=== PATIENT | female | born 1935 | race Caucasian/White ===

== ENCOUNTER 2017-04-05 23:16 | Emergency (ER) | payer OTHER, MEDICARE ==
[2017-04-05 23:26] VITALS: BMI 33.3
[2017-04-05 23:43] LABS: BILIRUBIN,URINE NEGATIVE (NEGATIVE); BLOOD/HEMOGLOBIN,URINE 2+ (NEGATIVE); GLUCOSE, URINE NEGATIVE (NEGATIVE); KETONES,URINE NEGATIVE (NEGATIVE); LEUKOCYTE ESTERASE ,URINE 2+ (NEGATIVE); NITRITES,URINE NEGATIVE (NEGATIVE); PROTEIN,URINE NEGATIVE (NEGATIVE); UROBILINOGEN,URINE NORMAL (NORMAL)
[2017-04-06] MEDS ORDERED: ZOFRAN INJ 4 MG VIAL IM ONE
[2017-04-06] MEDS ORDERED: DEMEROL INJ IM ONE
--- NOTE | 2017-04-06 | DR.GENAD ---
HPI - PCP Primary Care Physician: OBINNA - HPI Comment HPI Comment: PAIN GO FROM THE BACK TO THE FRONT AREA OF ABDOMEN. NO FEVER.OR DYSURIA. PATIENT HAVE HAD NEPHRECTOMY LT KIDNEY. - Complaint/Symptoms Chief Complaint Doctors Comments: RIGHT FLANK PAIN THAT IS GETTING WORSE. Chief Complaint:: RIGHT BACK PAIN RADIATES AROUND TO SIDE , COMES AND GOES LIKE WAVES. IT STARTED TONIGHT. INCREASE IN URINE FREQUENCY.DENIES ANY HEMATURIA Self Treatment fo Chief Complaint: CY DEIEN 2 OF EACH - Nurses notes reviewed Nurses Notes Review: Yes - Source History Provided: Patient - Mode of Arrival Mode of Arrival: Ambulatory - Timing Onset of Chief Complaint: 04/05/17 Came on: Gradually - Duration Duration: Constant Duration: Hours - Severity Severity: Moderate PMH - PMH Past Medical History: Yes Past Medical History: Gout, Hypertension, Renal Disease Past Medical History Comment: KIDNEY CANCER- LEFT NEPHRECTOMY Past Surgical History: Yes Surgical History: Bowel Resection, Joint Replacement, Other Past Surgical History Comment: LEFT KIDNEY REMOVED - Family History History of Family Medical Conditions: Yes Family Medical History: Cancer, Hypertension - Social History Does patient currently use any type of tobacco product: No Have you used tobacco products in the last 12 months: No Type of Tobacco Use: None Does any household member use tobacco: No Alcohol Use: None Do you use any recreational Drugs:: No Lives With: Family Lives Where: Home - infectious screening Have you traveled outside the country in the last 6 months?: No Isolation: Standard ROS - Review of Systems Constitutional: No Symptoms Reported. negative: Chills, Fever Eyes: negative: Eye Pain, Discharge ENTM: negative: Ear Pain, Nose Discharge, Nose Congestion, Throat Pain Respiratoy: Short of Breath (ON EXERSION.). negative: Wheezing, Hemoptysis Cardiovascular: Edema. negative: Chest Pain Gastrointestinal/Abdominal: Abdominal Pain, Other (RIGHT FLANK PAIN). negative : Nausea, Vomiting Genitourinary: negative: Dysuria, Hematuria Neurological: negative: Headache, Weakness, Dizziness Musculoskeletal: Muscle Pain Integumentary: negative: Rash, Bruises, Juandice Hematologic/Lymphatic: Anemia Endocrine: No Symptoms Reported All Other Systems: Reviewed and Negative PE - Vital Signs Vitals: Temperature 97.5 F Pulse Rate [Left Brachial] 58 Pulse Rate 65 Respiratory Rate 18 Blood Pressure [Right Arm] 170/92 Blood Pressure [Left Arm] 154/68 Blood Pressure 168/79 O2 Sat by Pulse Oximetry 95 - General Limitations: No Limitations General Appearance: Alert - Head Head Exam: Normal Inspection - Eyes Eye exam: negative: Scleral Icterus, Conjunctival Injection - ENT ENT Exam: Normal External Ear Exam External Ear Exam: Normal External Inspection TM/Canal Exam: Bilateral Normal Nose Exam: Normal Nose Exam Mouth Exam: Normal Inspection Throat Exam: Normal Inspection - Neck Neck Exam: Trachea Midline - Chest Chest Inspection: Symmetric Chest Wall Rise - Respiratory Respiratory Exam: Normal Lung Sounds Bilat Respiratory Exam: Bilateral Clear to Auscultation - Cardiovascular Cardiovascular Exam: Regular Rate, Normal Rhythm, Normal Heart Sounds - Abdominal Exam Abdominal Exam: Normal Bowel Sounds, Soft, Tenderness Abdominal Tenderness: RUQ, RLQ, Epigastrium - Extremities Extremities Exam: Edema - Back Back Exam: (R) CVA Tenderness, Paraspinal Tenderness - Neurologic Neurological Exam: Alert, Oriented X3 - Psychiatric Psychiatric Exam: Normal Affect, Normal Mood - Skin Skin Exam: Normal Color MDM - Additional Information Additional Information Obtained From: Family - Differential Diagnosis Differential Diagnosis: RIGHT FLANK PAIN, KIDNEY STONE, CHOLECYSTITIS, GALL STONE, Course - Treatment Treatment: SEE ORDERS. DEMOROL IN IN ED. PAIN IMPROVED. - Education/Counseling Education/Counseling: Patient, Family, Education Educated On: Treatment, Diagnosis, Needs for Follow Up ROR - Labs Reviewed Laboratory Results Reviewed?: Yes Result Diagrams: 04/05/17 23:58 04/05/17 23:58 Laboratory: WBC 6.4 X10^3/uL (3.6-10.0) 04/05/17 23:58 RBC 4.50 X10^6/uL (3.5-5.4) 04/05/17 23:58 Hgb 13.3 g/dL (12.0-16.0) 04/05/17 23:58 Hct 38.9 % (36.0-47.0) 04/05/17 23:58 MCV 86.4 fL (80.0-100.0) 04/05/17 23:58 MCH 29.6 pg (27.0-34.0) 04/05/17 23:58 MCHC 34.2 g/dL (33.0-35.0) 04/05/17 23:58 RDW 14.8 % (11.6-16.5) 04/05/17 23:58 Plt Count 192 X10^3/uL (150.0-450.0) 04/05/17 23:58 MPV 7.9 fL (7.4-11.0) 04/05/17 23:58 Neut % 72.6 % (42.0-75.0) 04/05/17 23:58 Lymph % 18.6 % (21.0-51.0) L 04/05/17 23:58 Andrews % 7.8 % (0.0-13.0) 04/05/17 23:58 Eos % 0.3 % (0.9-2.9) L 04/05/17 23:58 Baso % 0.7 % (0.2-1.0) 04/05/17 23:58 Neut # 4.7 x10^3/uL (2.2-4.8) 04/05/17 23:58 Lymph # 1.2 X10^3/uL (1.3-2.9) L 04/05/17 23:58 Andrews # 0.5 x10^3/uL (0.3-0.8) 04/05/17 23:58 Eos # 0.0 x10^3/uL (0.0-0.2) 04/05/17 23:58 Baso # 0.0 X10^3/uL (0.0-0.1) 04/05/17 23:58 Absolute Nucleated RBC 0.0 /100WBC 04/05/17 23:58 Sodium 136 mmol/L (136-145) 04/05/17 23:58 Corrected Sodium TNP 04/05/17 23:58 Potassium 3.7 mmol/L (3.5-5.1) 04/05/17 23:58 Chloride 102 mmol/L (98-107) 04/05/17 23:58 Carbon Dioxide 30.0 mmol/L (21-32) 04/05/17 23:58 BUN 34 mg/dL (7-18) H 04/05/17 23:58 Creatinine 1.23 mg/dL (0.55-1.02) H 04/05/17 23:58 Est GFR (MDRD) Af Amer 53 (>60) L 04/05/17 23:58 Est GFR (MDRD) Non-Af 44 (>60) L 04/05/17 23:58 Glucose 99 mg/dL (65-99) 04/05/17 23:58 Calcium 9.2 mg/dL (8.5-10.1) 04/05/17 23:58 Corrected Calcium 9.9 mg/dL (8.5-10.1) 04/05/17 23:58 Total Bilirubin 0.50 mg/dL (0.2-1.0) 04/05/17 23:58 AST 13 Units/L (15-37) L 04/05/17 23:58 ALT 14 Units/L (12-78) 04/05/17 23:58 Alkaline Phosphatase 84 Units/L (46-116) 04/05/17 23:58 Total Protein 6.3 g/dL (6.4-8.2) L 04/05/17 23:58 Albumin 3.1 g/dL (3.4-5.0) L 04/05/17 23:58 Globulin 3.2 g/dL (2.5-4.5) 04/05/17 23:58 Albumin/Globulin Ratio 1.0 Ratio (1.1-2.1) L 04/05/17 23:58 Amylase 54 Units/L (25-115) 04/05/17 23:58 Lipase 302 Units/L (73-393) 04/05/17 23:58 Specimen Type Clean catch urine 04/05/17 23:34 Urine Color Yellow (YELLOW) 04/05/17 23:34 Urine Appearance Clear (CLEAR) 04/05/17 23:34 Urine pH 7.0 (5.0 - 8.0) 04/05/17 23:34 Ur Specific [place] 1.010 (1.000-1.030) 04/05/17 23:34 Urine Protein Negative (NEGATIVE) 04/05/17 23:34 Urine Glucose (UA) Negative (NEGATIVE) 04/05/17 23:34 Urine Ketones Negative (NEGATIVE) 04/05/17 23:34 Urine Occult Blood 2+ (NEGATIVE) 04/05/17 23:34 Urine Nitrite Negative (NEGATIVE) 04/05/17 23:34 Urine Bilirubin Negative (NEGATIVE) 04/05/17 23:34 Urine Urobilinogen Normal (NORMAL) 04/05/17 23:34 Ur Leukocyte Esterase 2+ (NEGATIVE) 04/05/17 23:34 Urine RBC 0-3 /HPF (NEGATIVE) 04/05/17 23:34 Urine WBC 0-3 /HPF (NEGATIVE) 04/05/17 23:34 Ur Squamous Epith Cells Few /HPF (NEGATIVE) 04/05/17 23:34 Urine Bacteria Trace /HPF (NEGATIVE) 04/05/17 23:34 Ur Culture Indicated? No/not indicated 04/05/17 23:34 - XRAY XRAY Interpreted by: Radiologist XRAY Findings: REPORT DISCUSS WITH PATIENT. - Diagnosis Discharge Problem: Right flank pain Radiculopathy Qualifiers: Spinal region: thoracolumbar Qualified Code(s): M54.15 - Radiculopathy, thoracolumbar region - Discharge Plan Condition: Stable - Follow ups/Referrals Follow ups/Referrals: Joe Chin [STAFF PHYSICIAN] - 3 days NFD,None [Primary Care Provider] - 04/07/17 - Instructions Instructions: Musculoskeletal Pain, Flank Pain, [id number] Additional Instructions: RETURN TO ED IF WORSE.
[2017-04-06] MEDS ORDERED: DEMEROL INJ ONE (00:04)
[2017-04-06] MEDS ORDERED: ZOFRAN INJ 4 MG VIAL ONE (00:04)
[2017-04-06 00:05] LABS: APPEARANCE,URINE CLEAR (CLEAR); BACTERIA,URINE TRACE /HPF (NEGATIVE); COLOR,URINE YELLOW (YELLOW); RBC,URINE 0-3 /HPF (NEGATIVE); SQUAMOUS EPITHELIAL CELL,UR FEW /HPF (NEGATIVE)
[2017-04-06 00:14] LABS: BASOPHILS % (AUTO) 0.7 % (0.2-1.0); EOSINOPHILS % (AUTO) 0.3 % (0.9-2.9); HEMATOCRIT 38.9 % (36.0-47.0); HEMOGLOBIN 13.3 g/dL (12.0-16.0); LYMPHOCYTES # (AUTO) 1.2 X10^3/uL (1.3-2.9); LYMPHOCYTES % (AUTO) 18.6 % (21.0-51.0); MEAN CORPUSCULAR HEMOGLOBIN 29.6 pg (27.0-34.0); MEAN CORPUSCULAR HGB CONC 34.2 g/dL (33.0-35.0); MEAN CORPUSCULAR VOLUME 86.4 fL (80.0-100.0); MEAN PLATELET VOLUME 7.9 fL (7.4-11.0); MONOCYTES # (AUTO) 0.5 x10^3/uL (0.3-0.8); MONOCYTES % (AUTO) 7.8 % (0.0-13.0); NEUTROPHILS # (AUTO) 4.7 x10^3/uL (2.2-4.8); NEUTROPHILS % (AUTO) 72.6 % (42.0-75.0); PLATELET COUNT 192 X10^3/uL (150.0-450.0); RED CELL DISTRIBUTION WIDTH 14.8 % (11.6-16.5); WHITE BLOOD COUNT 6.4 X10^3/uL (3.6-10.0)
[2017-04-06 00:32] LABS: BLOOD UREA NITROGEN 34 mg/dL (7-18); CALCIUM 9.2 mg/dL (8.5-10.1); CHLORIDE 102 mmol/L (98-107); CREATININE 1.23 mg/dL (0.55-1.02); SODIUM 136 mmol/L (136-145); eGFR BLACK RACES 53 (>60); eGFR NON BLACK RACES 44 (>60)
[2017-04-06 00:54] LABS: ALANINE AMINOTRANSFERASE 14 Units/L (12-78); ALBUMIN 3.1 g/dL (3.4-5.0); ALKALINE PHOSPHATASE 84 Units/L (46-116); AMYLASE 54 Units/L (25-115); ASPARTATE AMINO TRANSFERASE 13 Units/L (15-37); COR CA(FOR HYPOALB) 9.9 mg/dL (8.5-10.1); LIPASE 302 Units/L (73-393); TOTAL PROTEIN 6.3 g/dL (6.4-8.2)
--- NOTE | 2017-04-06 01:16 | CT ---
CT abdomen and pelvis without contrast Indication: Right flank pain Comparison: No prior CT abdomen available. Technique: Helical images through the abdomen and pelvis without contrast. Coronal and sagittal refor mats provided. Findings: T11 compression fracture with vertebroplasty change again noted. No new osseous abnormaliti es seen otherwise. Limited images through the lower chest show chronic lung changes large hiatal hernia with the majorit y of the stomach and knee posterior mediastinum. Heart size is prominent with coronary artery disease noted. Abdomen: A few scattered hepatic hypodensities are nonspecific. The gallbladder, spleen and pancreas are normal. Adrenal glands are relatively normal with calcifications seen in the left adrenal gland. Stomach is otherwise normal. Small bowel is normal. Noninflamed sigmoid diverticulosis and descending colon diverticulosis noted. Moderate aortic plaque noted. Right lower pole renal cyst noted. Left ki dney is absent. Pelvis: The urinary bladder and rectum are normal. Uterus is atrophic. No adnexal region lesions seen . Impression: 1. No hydronephrosis or stone. 2. Right lower pole renal hypodensities most compatible with cyst but technically indeterminate. None mergent follow-up should be considered. 3. Scattered hepatic hypodensities are indeterminate. Metastatic disease cannot be completely exclude d. Nonemergent outpatient ultrasound follow-up recommended. 4.. Diverticulosis, large hiatal hernia, chronic lung changes, vascular plaque and chronic T11 fractu re also noted. Reported By:
[2017-04-06 01:36] VITALS: BP 154/68
== END 2017-04-06 01:36 | disposition home or self-care (01) ==
LOC: ER 23:32
DX: R10.84 Generalized abdominal pain (principal); M54.15 Radiculopathy, thoracolumbar region; K57.90 Diverticulosis of intestine, part unspecified, without perforation or abscess without bleeding; K44.9 Diaphragmatic hernia without obstruction or gangrene
CPT/HCPCS: 36415; 74176; 80053; 81001; 82150; 83690; 85025; 96372; 99283; J2175; J2405

== ENCOUNTER 2017-04-10 00:12 | Emergency (ER) | payer OTHER, MEDICARE ==
[2017-04-10 00:34] VITALS: BMI 31.6
[2017-04-10] MEDS ORDERED: ZOFRAN INJ 4 MG VIAL IVP ONE (00:54)
[2017-04-10] MEDS ORDERED: NS 1000 ML 1,000 ML IV ONE (00:55)
--- NOTE | 2017-04-10 01:00 | DR.GENAD ---
HPI - PCP Primary Care Physician: JOE YEBOAH - Complaint/Symptoms Chief Complaint Doctors Comments: Patient was seen on 04/05/17 with chronic low back pain. CT revealed a chronic T11 fracture (compressio). She was medicated with IM medication. She did not follow up with primary care physician Chief Complaint:: "PAIN IN MY LEFT SIDE AND LOWER BACK. I HAVE BEEN THROWING UP. " Self Treatment fo Chief Complaint: HYDROCODONE, ZANAX, ADVIL - Source History Provided: Patient - Mode of Arrival Mode of Arrival: Ambulatory - Timing Onset of Chief Complaint: 04/09/17 PMH - PMH Past Medical History: Yes Past Medical History: Anxiety, Gout, Hypertension Past Medical History Comment: KIDNEY CANCER Past Surgical History: Yes Surgical History: Bowel Resection, Ortho Surgery Past Surgical History Comment: LEFT KIDNEY REMOVED - Family History History of Family Medical Conditions: Yes Family Medical History: Hypertension - Social History Does patient currently use any type of tobacco product: No Have you used tobacco products in the last 12 months: No Type of Tobacco Use: None Alcohol Use: None Do you use any recreational Drugs:: No Lives With: Alone Lives Where: Home - infectious screening In the last 2 months have you had wt loss of >10#?: NO Have you had fever, night sweats or hemotysis?: No Have you traveled outside the country in the last 6 months?: No Isolation: Standard ROS - Review of Systems Eyes: No Symptoms Reported ENTM: No Symptoms Reported Respiratoy: No Symptoms Reported Cardiovascular: No Symptoms Reported Gastrointestinal/Abdominal: No Symptoms Reported Genitourinary: No Symptoms Reported Neurological: No Symptoms Reported Musculoskeletal: No Symptoms Reported Integumentary: No Symptoms Reported Hematologic/Lymphatic: No Symptoms Reported Endocrine: No Symptoms Reported Psychiatric: No Symptoms Reported All Other Systems: Reviewed and Negative PE - Vital Signs Vitals: Pulse Rate 65 Respiratory Rate 20 Blood Pressure [Right Arm] 170/92 Blood Pressure [Left Arm] 181/75 Blood Pressure 154/68 O2 Sat by Pulse Oximetry 96 - General General Appearance: Alert, In No Apparent Distress - Head Head Exam: Normal Inspection, Atraumatic - Eyes Eye exam: Normal Appearance, PERRL, EOMI - ENT ENT Exam: Normal Exam External Ear Exam: Normal External Inspection TM/Canal Exam: Bilateral Normal Nose Exam: Normal Nose Exam, Sinus Tenderness Mouth Exam: Normal Inspection Throat Exam: Normal Inspection - Neck Neck Exam: Normal Inspection, Full ROM - Chest Chest Inspection: Normal Inspection - Respiratory Respiratory Exam: Normal Lung Sounds Bilat Respiratory Exam: Bilateral Clear to Auscultation - Cardiovascular Cardiovascular Exam: Regular Rate, Normal Rhythm - Abdominal Exam Abdominal Exam: Normal Inspection Abdominal Tenderness: negative: RUQ, RLQ, LUQ, LLQ, Epigastrium, Suprapubic, Diffuse, Mild, Moderate, Severe, Other - Extremities Extremities Exam: Normal Inspection, Full ROM - Back Back Exam: Normal Inspection, Vertebral Tenderness (mid lumbar) - Neurologic Neurological Exam: Alert, Oriented X3, CN II-XII Intact - Psychiatric Psychiatric Exam: Normal Affect - Skin Skin Exam: Warm, Dry, Intact - Diagnosis Discharge Problem: Compression fx, thoracic spine Qualifiers: Encounter type: subsequent encounter Fracture type: closed Fracture healing: with routine healing Qualified Code(s): S22.000D - Wedge compression fracture of unspecified thoracic vertebra, subsequent encounter for fracture with routine healing - Discharge Plan Condition: Stable - Follow ups/Referrals Follow ups/Referrals: Joe Yeboah [Primary Care Provider] - 3 days - Instructions
[2017-04-10] MEDS ORDERED: TORADOL 60 MG VIAL IM ONE (01:01)
[2017-04-10] MEDS ORDERED: TORADOL 60 MG VIAL ONE (01:07)
[2017-04-10 01:33] VITALS: BP 171/68
[2017-04-10] MEDS ORDERED: MOBIC TAB 15 MG PO SCH (02:00)
== END 2017-04-10 01:30 | disposition home or self-care (01) ==
LOC: ER 00:12
DX: S22.000D Wedge compression fracture of unspecified thoracic vertebra, subsequent encounter for fracture with routine healing (principal); Y33.XXXA Other specified events, undetermined intent, initial encounter; Y92.9 Unspecified place or not applicable
CPT/HCPCS: 96372; 99282; J1885

== ENCOUNTER 2017-09-03 16:15 | Emergency (ER) | payer OTHER, MEDICARE ==
[2017-09-03 16:22] VITALS: BMI 31.6
--- NOTE | 2017-09-03 16:58 | DR.GENAD ---
HPI - PCP Primary Care Physician: JAEL - HPI Comment HPI Comment: PATIENT HAVE CHRONIC BACK PAIN BUT CURRENT PAIN IS DIFFERENT. NO FEVER. - Complaint/Symptoms Chief Complaint Doctors Comments: BACK AND LEFT SIFE PAIN TIMES ONE DAY. Chief Complaint:: BACK PAIN AND LEFT SIDE PAIN. DENIES FALLING BUT HAD BACK SURGERY BUT DOESN'T REMEMBER THE YEAR. Self Treatment fo Chief Complaint: TOOK SOME MEDS THAT I HAD AT HOME - Nurses notes reviewed Nurses Notes Review: Yes - Source History Provided: Patient - Mode of Arrival Mode of Arrival: Ambulatory - Timing Onset of Chief Complaint: 09/02/17 Came on: Suddenly - Duration Duration: Constant Duration: Days - Severity Severity: Moderate PMH - PMH Past Medical History: Yes Past Medical History: Anxiety, Arthritis, Gout, Hypertension Past Surgical History: Yes Surgical History: Bowel Resection, Ortho Surgery, Other Past Surgical History Comment: KIDNEY REMOVED FROM CANCER - Family History History of Family Medical Conditions: Yes Family Medical History: Hypertension - Social History Does any household member use tobacco: No Alcohol Use: None Do you use any recreational Drugs:: No Lives With: Alone Lives Where: Home - infectious screening In the last 2 months have you had wt loss of >10#?: NO Have you had fever, night sweats or hemotysis?: No Have you traveled outside the country in the last 6 months?: No Isolation: Standard ROS - Review of Systems Constitutional: No Symptoms Reported Eyes: No Symptoms Reported ENTM: No Symptoms Reported Respiratoy: No Symptoms Reported Cardiovascular: No Symptoms Reported Gastrointestinal/Abdominal: No Symptoms Reported Genitourinary: No Symptoms Reported Neurological: No Symptoms Reported Musculoskeletal: Other (LEFT FLANK PAIN) Integumentary: No Symptoms Reported Hematologic/Lymphatic: No Symptoms Reported Endocrine: No Symptoms Reported All Other Systems: Reviewed and Negative PE - Vital Signs Vitals: Temperature 97.4 F Pulse Rate [Left Brachial] 65 Pulse Rate 55 Respiratory Rate 20 Blood Pressure [Right Arm] 171/68 Blood Pressure [Left Arm] 198/83 Blood Pressure 220/91 O2 Sat by Pulse Oximetry 96 - General Limitations: No Limitations General Appearance: Alert - Head Head Exam: Normal Inspection - Eyes Eye exam: Normal Appearance - ENT ENT Exam: Normal External Ear Exam External Ear Exam: Normal External Inspection TM/Canal Exam: Bilateral Normal Nose Exam: Normal Nose Exam Mouth Exam: Normal Inspection Throat Exam: Normal Inspection - Neck Neck Exam: Trachea Midline - Respiratory Respiratory Exam: Normal Lung Sounds Bilat Respiratory Exam: Bilateral Clear to Auscultation - Cardiovascular Cardiovascular Exam: Regular Rate, Normal Rhythm, Normal Heart Sounds - Abdominal Exam Abdominal Exam: Normal Bowel Sounds, Soft. negative: Tenderness - Extremities Extremities Exam: Normal Inspection - Back Back Exam: Muscle Spasm, Paraspinal Tenderness - Neurologic Neurological Exam: Alert, Oriented X3 - Psychiatric Psychiatric Exam: Normal Affect, Normal Mood - Skin Skin Exam: Normal Color MDM - Additional Information Additional Information Obtained From: Family - Differential Diagnosis Differential Diagnosis: LEFT FLANK PAIN, UTI, KIDNEY STONE Course - Treatment Treatment: SEE ORDERS. IM MED FOR PAIN IN ED. - Reevaluation 1st: Improved - Education/Counseling Education/Counseling: Patient, Family, Education Educated On: Treatment, Diagnosis, Needs for Follow Up ROR - Labs Reviewed Laboratory Results Reviewed?: Yes Laboratory: Specimen Type Random urine 09/03/17 17:12 Urine Color Yellow (YELLOW) 09/03/17 17:12 Urine Appearance Slightly hazy (CLEAR) 09/03/17 17:12 Urine pH 5.0 (5.0 - 8.0) 09/03/17 17:12 Ur Specific [place] 1.020 (1.000-1.030) 09/03/17 17:12 Urine Protein 1+ (NEGATIVE) 09/03/17 17:12 Urine Glucose (UA) Negative (NEGATIVE) 09/03/17 17:12 Urine Ketones Negative (NEGATIVE) 09/03/17 17:12 Urine Occult Blood 3+ (NEGATIVE) 09/03/17 17:12 Urine Nitrite Negative (NEGATIVE) 09/03/17 17:12 Urine Bilirubin Negative (NEGATIVE) 09/03/17 17:12 Urine Urobilinogen Normal (NORMAL) 09/03/17 17:12 Ur Leukocyte Esterase 1+ (NEGATIVE) 09/03/17 17:12 Urine RBC 3-5 /HPF (NONE SEEN) 09/03/17 17:12 Urine WBC 0-2 /HPF (NONE SEEN) 09/03/17 17:12 Ur Squamous Epith Cells Rare /HPF (NEGATIVE) 09/03/17 17:12 Urine Bacteria Negative /HPF (NEGATIVE) 09/03/17 17:12 Ur Culture Indicated? No/not indicated 09/03/17 17:12 - Diagnosis Discharge Problem: Back pain - Discharge Plan Disposition: 01 HOME, SELF-CARE Condition: Stable - Follow ups/Referrals Follow ups/Referrals: Joe Chin [Primary Care Provider] - 09/04/17 - Instructions Instructions: Musculoskeletal Pain, Back Pain, Adult, [id number] Additional Instructions: RETURN TO ED IF WORSE.
[2017-09-03] MEDS ORDERED: TORADOL 60 MG VIAL IM ONE (17:00)
[2017-09-03] MEDS ORDERED: DECADRON INJ IM ONE (17:00)
[2017-09-03] MEDS ORDERED: TORADOL 60 MG VIAL ONE (17:05)
[2017-09-03] MEDS ORDERED: DECADRON INJ ONE (17:06)
[2017-09-03 17:23] LABS: BILIRUBIN,URINE NEGATIVE (NEGATIVE); BLOOD/HEMOGLOBIN,URINE 3+ (NEGATIVE); GLUCOSE, URINE NEGATIVE (NEGATIVE); KETONES,URINE NEGATIVE (NEGATIVE); LEUKOCYTE ESTERASE ,URINE 1+ (NEGATIVE); NITRITES,URINE NEGATIVE (NEGATIVE); PROTEIN,URINE 1+ (NEGATIVE); UROBILINOGEN,URINE NORMAL (NORMAL)
[2017-09-03 17:25] LABS: COLOR,URINE YELLOW (YELLOW)
[2017-09-03 17:26] LABS: APPEARANCE,URINE SLIGHTLY HAZY (CLEAR)
[2017-09-03 17:38] LABS: BACTERIA,URINE NEGATIVE /HPF (NEGATIVE); SQUAMOUS EPITHELIAL CELL,UR RARE /HPF (NEGATIVE)
[2017-09-03 18:16] VITALS: BP 198/83
== END 2017-09-03 18:15 | disposition home or self-care (01) ==
LOC: ER 16:27
DX: M54.89 Other dorsalgia (principal)
CPT/HCPCS: 81001; 96372; 99282; 99284; J1100; J1885

== ENCOUNTER 2017-11-15 15:15 | Observation (INO) ==
--- NOTE | 2017-11-15 15:46 | DR.GENAD ---
HPI - PCP Primary Care Physician: OBINNA - Complaint/Symptoms Chief Complaint Doctors Comments: Patient presents with complaint of weakness. Chief Complaint:: PT. STATES SHE HAS BEEN SICK FOR ABOUT A MONTH. PT. C/O WEAKNESS, NAUSEA, DECREASED APPETITE, AND SHORTNESS OF BREATH. - Source History Provided: Patient - Mode of Arrival Mode of Arrival: Wheelchair - Timing Onset of Chief Complaint: 10/16/17 PMH - PMH Past Medical History: Yes Past Medical History: Anxiety, Arthritis, Gout, Hypertension, Renal Disease Past Medical History Comment: KIDNEY CANCER Past Surgical History: Yes Surgical History: Bowel Resection, Ortho Surgery, Other Past Surgical History Comment: LEFT NEPHRECTOMY - Family History History of Family Medical Conditions: Yes Family Medical History: Hypertension - Social History Does patient currently use any type of tobacco product: No Have you used tobacco products in the last 12 months: No Type of Tobacco Use: None Does any household member use tobacco: No Alcohol Use: None Do you use any recreational Drugs:: No Lives With: Alone Lives Where: Home - infectious screening In the last 2 months have you had wt loss of >10#?: NO Have you had fever, night sweats or hemotysis?: No Have you traveled outside the country in the last 6 months?: No Isolation: Standard ROS - Review of Systems Eyes: No Symptoms Reported ENTM: No Symptoms Reported Respiratoy: No Symptoms Reported Cardiovascular: No Symptoms Reported Gastrointestinal/Abdominal: No Symptoms Reported Genitourinary: No Symptoms Reported Neurological: Weakness Musculoskeletal: No Symptoms Reported, Joint Pain Integumentary: No Symptoms Reported Hematologic/Lymphatic: No Symptoms Reported Endocrine: No Symptoms Reported Psychiatric: No Symptoms Reported All Other Systems: Reviewed and Negative PE - General Limitations: Physical Limitation General Appearance: Alert - Head Head Exam: Normal Inspection, Atraumatic - Eyes Eye exam: Normal Appearance, PERRL, EOMI - ENT ENT Exam: Normal Exam External Ear Exam: Normal External Inspection TM/Canal Exam: Bilateral Normal Nose Exam: Normal Nose Exam Mouth Exam: Normal Inspection Throat Exam: Normal Inspection - Neck Neck Exam: Normal Inspection - Chest Chest Inspection: Normal Inspection - Respiratory Respiratory Exam: Normal Lung Sounds Bilat Respiratory Exam: Bilateral Clear to Auscultation - Cardiovascular Cardiovascular Exam: Regular Rate - Abdominal Exam Abdominal Exam: Normal Inspection, Normal Bowel Sounds Abdominal Tenderness: negative: RUQ, RLQ, LUQ, LLQ, Epigastrium, Suprapubic, Diffuse, Mild, Moderate, Severe, Other - Back Back Exam: Normal Inspection - Neurologic Neurological Exam: Alert, Oriented X3, CN II-XII Intact - Psychiatric Psychiatric Exam: Normal Affect, Normal Mood - Skin Skin Exam: Warm, Dry, Intact - Vital Signs Vitals: Temperature 99.8 F Pulse Rate [Left Brachial] 67 Pulse Rate 56 Respiratory Rate 20 Blood Pressure [Right Arm] 171/68 Blood Pressure [Left Arm] 178/76 Blood Pressure 173/72 O2 Sat by Pulse Oximetry 97 Course - Reevaluation 1st: Unchanged - Consultation Called: 16:50 (Dr Chin agreed to admit for further evaluation and treatment.) ROR - Labs Reviewed Result Diagrams: 11/15/17 15:37 11/15/17 15:37 - XRAY XRAY Interpreted by: Radiologist, Both (PA/Lat Chest: There is persistent density at the left lung base obscuring the left heart border, behind the heart. This corresponds to a large hiatal hernia. The heart size is normal. There is methylmethacrylate in a compressed lower thoracic, T11 compression fracture. There is no pleural effusion. Impression:Large hiatal hernia, no definite acute cardiopulmonary disease.) - Labs Reviewed Laboratory: WBC 6.6 X10^3/uL (3.6-10.0) 11/15/17 15:37 RBC 4.66 X10^6/uL (3.5-5.4) 11/15/17 15:37 Hgb 13.6 g/dL (12.0-16.0) 11/15/17 15:37 Hct 40.2 % (36.0-47.0) 11/15/17 15:37 MCV 86.1 fL (80.0-100.0) 11/15/17 15:37 MCH 29.1 pg (27.0-34.0) 11/15/17 15:37 MCHC 33.8 g/dL (33.0-35.0) 11/15/17 15:37 RDW 14.7 % (11.6-16.5) 11/15/17 15:37 Plt Count 180 X10^3/uL (150.0-450.0) 11/15/17 15:37 MPV 8.0 fL (7.4-11.0) 11/15/17 15:37 Neut % (Auto) 79.5 % (42.0-75.0) H 11/15/17 15:37 Lymph % (Auto) 9.6 % (21.0-51.0) L 11/15/17 15:37 Lucas % (Auto) 8.6 % (0.0-13.0) 11/15/17 15:37 Eos % (Auto) 1.2 % (0.9-2.9) 11/15/17 15:37 Baso % (Auto) 1.1 % (0.2-1.0) H 11/15/17 15:37 Neut # (Auto) 5.2 x10^3/uL (2.2-4.8) H 11/15/17 15:37 Lymph # (Auto) 0.6 X10^3/uL (1.3-2.9) L 11/15/17 15:37 Lucas # (Auto) 0.6 x10^3/uL (0.3-0.8) 11/15/17 15:37 Eos # (Auto) 0.1 x10^3/uL (0.0-0.2) 11/15/17 15:37 Baso # (Auto) 0.1 X10^3/uL (0.0-0.1) 11/15/17 15:37 Absolute Nucleated RBC 0.1 /100WBC 11/15/17 15:37 INR Target Range - 11/15/17 15:37 INR 0.92 (0.8-1.3) 11/15/17 15:37 Sodium 135 mmol/L (136-145) L 11/15/17 15:37 Corrected Sodium 135 mmol/L (136-145) L 11/15/17 15:37 Potassium 3.5 mmol/L (3.5-5.1) 11/15/17 15:37 Chloride 98 mmol/L (98-107) 11/15/17 15:37 Carbon Dioxide 27.4 mmol/L (21-32) 11/15/17 15:37 BUN 24 mg/dL (7-18) H 11/15/17 15:37 Creatinine 1.43 mg/dL (0.55-1.02) H 11/15/17 15:37 Est GFR (MDRD) Af Amer 45 (>60) L 11/15/17 15:37 Est GFR (MDRD) Non-Af 37 (>60) L 11/15/17 15:37 Glucose 113 mg/dL (65-99) H 11/15/17 15:37 Calcium 9.9 mg/dL (8.5-10.1) 11/15/17 15:37 Corrected Calcium 10.6 mg/dL (8.5-10.1) H 11/15/17 15:37 Magnesium 2.1 mg/dL (1.7-2.9) 11/15/17 15:37 Total Bilirubin 1.00 mg/dL (0.2-1.0) 11/15/17 15:37 AST 14 Units/L (15-37) L 11/15/17 15:37 ALT 13 Units/L (12-78) 11/15/17 15:37 Alkaline Phosphatase 77 Units/L (46-116) 11/15/17 15:37 Creatine Kinase 9 Units/L (26-192) L 11/15/17 15:37 CK-MB (CK-2) < 1.0 ng/mL (0-4.0) 11/15/17 15:37 CK/CKMB % Calc 11.1 % (<4) 11/15/17 15:37 Troponin I < 0.02 ng/mL (0-1.5) 11/15/17 15:37 Total Protein 6.6 g/dL (6.4-8.2) 11/15/17 15:37 Albumin 3.1 g/dL (3.4-5.0) L 11/15/17 15:37 Globulin 3.5 g/dL (2.5-4.5) 11/15/17 15:37 Albumin/Globulin Ratio 0.9 Ratio (1.1-2.1) L 11/15/17 15:37 Specimen Type Clean catch urine 11/15/17 15:54 Urine Color Yellow (YELLOW) 11/15/17 15:54 Urine Appearance Clear (CLEAR) 11/15/17 15:54 Urine pH 7.0 (5.0 - 8.0) 11/15/17 15:54 Ur Specific [place] 1.005 (1.000-1.030) 11/15/17 15:54 Urine Protein Negative (NEGATIVE) 11/15/17 15:54 Urine Glucose (UA) Negative (NEGATIVE) 11/15/17 15:54 Urine Ketones Negative (NEGATIVE) 11/15/17 15:54 Urine Occult Blood Negative (NEGATIVE) 11/15/17 15:54 Urine Nitrite Negative (NEGATIVE) 11/15/17 15:54 Urine Bilirubin Negative (NEGATIVE) 11/15/17 15:54 Urine Urobilinogen Normal (NORMAL) 11/15/17 15:54 Ur Leukocyte Esterase Negative (NEGATIVE) 11/15/17 15:54 - Diagnosis Discharge Problem: Weakness, Large hiatal hernia Wedge compression fracture of T11 vertebra Qualifiers: Encounter type: subsequent encounter Fracture type: closed Fracture healing: with routine healing Qualified Code(s): S22.080D - Wedge compression fracture of T11-T12 vertebra, subsequent encounter for fracture with routine healing - Discharge Plan Condition: Stable - Follow ups/Referrals Follow ups/Referrals: Joe Chin [Primary Care Provider] - 3 days - Instructions
[2017-11-15 15:53] LABS: BASOPHILS # (AUTO) 0.1 X10^3/uL (0.0-0.1); BASOPHILS % (AUTO) 1.1 % (0.2-1.0); EOSINOPHILS # (AUTO) 0.1 x10^3/uL (0.0-0.2); EOSINOPHILS % (AUTO) 1.2 % (0.9-2.9); HEMATOCRIT 40.2 % (36.0-47.0); HEMOGLOBIN 13.6 g/dL (12.0-16.0); LYMPHOCYTES # (AUTO) 0.6 X10^3/uL (1.3-2.9); LYMPHOCYTES % (AUTO) 9.6 % (21.0-51.0); MEAN CORPUSCULAR HEMOGLOBIN 29.1 pg (27.0-34.0); MEAN CORPUSCULAR HGB CONC 33.8 g/dL (33.0-35.0); MEAN CORPUSCULAR VOLUME 86.1 fL (80.0-100.0); MONOCYTES # (AUTO) 0.6 x10^3/uL (0.3-0.8); MONOCYTES % (AUTO) 8.6 % (0.0-13.0); NEUTROPHILS # (AUTO) 5.2 x10^3/uL (2.2-4.8); NEUTROPHILS % (AUTO) 79.5 % (42.0-75.0); PLATELET COUNT 180 X10^3/uL (150.0-450.0); RED BLOOD COUNT 4.66 X10^6/uL (3.5-5.4); RED CELL DISTRIBUTION WIDTH 14.7 % (11.6-16.5); WHITE BLOOD COUNT 6.6 X10^3/uL (3.6-10.0)
[2017-11-15 16:02] LABS: BILIRUBIN,URINE NEGATIVE (NEGATIVE); BLOOD/HEMOGLOBIN,URINE NEGATIVE (NEGATIVE); GLUCOSE, URINE NEGATIVE (NEGATIVE); KETONES,URINE NEGATIVE (NEGATIVE); LEUKOCYTE ESTERASE ,URINE NEGATIVE (NEGATIVE); NITRITES,URINE NEGATIVE (NEGATIVE); PROTEIN,URINE NEGATIVE (NEGATIVE); UROBILINOGEN,URINE NORMAL (NORMAL)
[2017-11-15 16:03] LABS: APPEARANCE,URINE CLEAR (CLEAR); COLOR,URINE YELLOW (YELLOW)
[2017-11-15 16:11] LABS: BLOOD UREA NITROGEN 24 mg/dL (7-18); CALCIUM 9.9 mg/dL (8.5-10.1); CARBON DIOXIDE 27.4 mmol/L (21-32); CHLORIDE 98 mmol/L (98-107); COR NA(FOR HYPERGLY) 135 mmol/L (136-145); CREATININE 1.43 mg/dL (0.55-1.02); SODIUM 135 mmol/L (136-145); TROPONIN I < 0.02 ng/mL (0-1.5); eGFR NON BLACK RACES 37 (>60)
--- NOTE | 2017-11-15 16:15 | RAD ---
Chest, AP portable Indication: Bradycardia Comparison: 06/01/2015 Findings: Cardiac silhouette enlargement is unchanged. There is retrocardiac opacity obscuring the left hemidia phragm. The left upper lung and right lung are grossly clear. Large hiatal hernia is noted. Impression: Stable cardiomegaly without overt edema. Retrocardiac opacity, suggestive for atelectasis, infiltrate, and/or pleural effusion. Consider two-v iew chest for further evaluation, if indicated. Large hiatal hernia. Reported By:
[2017-11-15 16:17] LABS: ALANINE AMINOTRANSFERASE 13 Units/L (12-78); ALBUMIN 3.1 g/dL (3.4-5.0); ALKALINE PHOSPHATASE 77 Units/L (46-116); ASPARTATE AMINO TRANSFERASE 14 Units/L (15-37); CKMB % 11.1 % (<4); COR CA(FOR HYPOALB) 10.6 mg/dL (8.5-10.1); CREATINE KINASE 9 Units/L (26-192); CREATINE KINASE MB < 1.0 ng/mL (0-4.0); MAGNESIUM 2.1 mg/dL (1.7-2.9); TOTAL PROTEIN 6.6 g/dL (6.4-8.2)
--- NOTE | 2017-11-15 17:29 | RAD ---
History: Weakness and nausea and shortness of breath for 1 month Study: PA and lateral chest Comparison: Portable chest today at 4:00 p.m. Findings: There is persistent density at the left lung base obscuring the left heart border, behind t he heart. This corresponds to a large hiatal hernia. The heart size is normal. There is methylmethacr ylate in a compressed lower thoracic, T11 compression fracture. There is no pleural effusion. Impression: Large hiatal hernia, no definite acute cardiopulmonary disease Reported By:
[2017-11-15] MEDS ORDERED: NS 1000 ML 1,000 ML ONE (18:28)
[2017-11-15] MEDS: NS 1000 ML 1,000 ML IV SCH (18:32)
[2017-11-15 20:11] VITALS: BMI 33.6
[2017-11-15] MEDS: ANTIVERT TAB 25 MG PO SCH (20:46)
[2017-11-15] MEDS: AMBIEN PO SCH (20:46)
[2017-11-15] MEDS: XANAX PO PRN (20:46)
[2017-11-15] MEDS: TOPROL XL PO SCH (20:46)
[2017-11-15] MEDS: CALAN SR 240 MG PO SCH (21:22)
[2017-11-15 21:55] LABS: CKMB % 11.1 % (<4); CREATINE KINASE 9 Units/L (26-192); CREATINE KINASE MB < 1.0 ng/mL (0-4.0); TROPONIN I < 0.02 ng/mL (0-1.5)
[2017-11-15] MEDS ORDERED: HYDRALAZINE PO SCH (22:00)
[2017-11-15] MEDS: APRESOLINE TAB 25 MG PO SCH (23:22)
[2017-11-16 04:19] LABS: ALANINE AMINOTRANSFERASE 11 Units/L (12-78); ALBUMIN 2.5 g/dL (3.4-5.0); ALKALINE PHOSPHATASE 63 Units/L (46-116); ASPARTATE AMINO TRANSFERASE 10 Units/L (15-37); BLOOD UREA NITROGEN 19 mg/dL (7-18); CALCIUM 9.1 mg/dL (8.5-10.1); CARBON DIOXIDE 29.2 mmol/L (21-32); CHLORIDE 100 mmol/L (98-107); CKMB % 14.3 % (<4); COR CA(FOR HYPOALB) 10.3 mg/dL (8.5-10.1); CREATINE KINASE 7 Units/L (26-192); CREATINE KINASE MB < 1.0 ng/mL (0-4.0); CREATININE 1.14 mg/dL (0.55-1.02); SODIUM 137 mmol/L (136-145); TOTAL PROTEIN 5.4 g/dL (6.4-8.2); TROPONIN I < 0.02 ng/mL (0-1.5); eGFR NON BLACK RACES 48 (>60)
[2017-11-16] MEDS ORDERED: POTASSIUM CHL 40 MEQ/NS 0.45% 500 ML IV PRN (04:49)
[2017-11-16] MEDS ORDERED: POTASSIUM CHL 60 MEQ/NS 0.45% 500 ML IV PRN (04:49)
[2017-11-16] MEDS ORDERED: K-RIDER 10 MEQ/NS 100 ML 10 MEQ/100 ML BAG IV PRN (04:49)
[2017-11-16] MEDS ORDERED: POTASSIUM CHLORIDE LIQ 20 MEQ UDC PO PRN (04:49)
[2017-11-16] MEDS ORDERED: K-LYTE EFFERVESCENT PO PRN (04:49)
[2017-11-16] MEDS: NS 1000 ML 1,000 ML IV SCH ×2 (05:51→18:35)
[2017-11-16] MEDS: APRESOLINE TAB 25 MG PO SCH ×3 (05:51→22:50)
[2017-11-16 08:31] LABS: BASOPHILS % (AUTO) 0.5 % (0.2-1.0); EOSINOPHILS # (AUTO) 0.1 x10^3/uL (0.0-0.2); EOSINOPHILS % (AUTO) 1.4 % (0.9-2.9); HEMATOCRIT 35.8 % (36.0-47.0); HEMOGLOBIN 12.4 g/dL (12.0-16.0); LYMPHOCYTES # (AUTO) 0.5 X10^3/uL (1.3-2.9); LYMPHOCYTES % (AUTO) 12.5 % (21.0-51.0); MEAN CORPUSCULAR HEMOGLOBIN 29.3 pg (27.0-34.0); MEAN CORPUSCULAR HGB CONC 34.6 g/dL (33.0-35.0); MEAN CORPUSCULAR VOLUME 84.5 fL (80.0-100.0); MEAN PLATELET VOLUME 8.4 fL (7.4-11.0); MONOCYTES # (AUTO) 0.4 x10^3/uL (0.3-0.8); MONOCYTES % (AUTO) 9.4 % (0.0-13.0); NEUTROPHILS # (AUTO) 3.2 x10^3/uL (2.2-4.8); NEUTROPHILS % (AUTO) 76.2 % (42.0-75.0); PLATELET COUNT 142 X10^3/uL (150.0-450.0); RED BLOOD COUNT 4.23 X10^6/uL (3.5-5.4); RED CELL DISTRIBUTION WIDTH 14.5 % (11.6-16.5); WHITE BLOOD COUNT 4.2 X10^3/uL (3.6-10.0)
[2017-11-16] MEDS ORDERED: PATIENT'S HOME MEDICATION (Losartan-Hydrochlorothiazide [Losartan-Hydrochlorothiazide] 1 T PO SCH (09:00)
[2017-11-16] MEDS: ANTIVERT TAB 25 MG PO SCH ×2 (09:34→20:56)
[2017-11-16] MEDS: COLCRYS TAB 0.6 MG PO SCH (09:34)
[2017-11-16] MEDS: HYZAAR 50/12.5 MG PO SCH (09:34)
[2017-11-16] MEDS ORDERED: LASIX IVP SCH (10:00)
[2017-11-16] MEDS: XANAX PO PRN (20:56)
[2017-11-16] MEDS: TOPROL XL PO SCH (20:56)
[2017-11-16] MEDS: AMBIEN PO SCH (20:56)
[2017-11-16] MEDS: CALAN SR 240 MG PO SCH (21:34)
[2017-11-17] MEDS: APRESOLINE TAB 25 MG PO SCH ×2 (05:15→13:42)
[2017-11-17 05:41] LABS: BASOPHILS % (AUTO) 0.6 % (0.2-1.0); EOSINOPHILS # (AUTO) 0.1 x10^3/uL (0.0-0.2); EOSINOPHILS % (AUTO) 1.8 % (0.9-2.9); HEMATOCRIT 37.7 % (36.0-47.0); LYMPHOCYTES # (AUTO) 0.6 X10^3/uL (1.3-2.9); LYMPHOCYTES % (AUTO) 15.9 % (21.0-51.0); MEAN CORPUSCULAR HEMOGLOBIN 29.3 pg (27.0-34.0); MEAN CORPUSCULAR HGB CONC 34.5 g/dL (33.0-35.0); MEAN CORPUSCULAR VOLUME 84.9 fL (80.0-100.0); MEAN PLATELET VOLUME 8.3 fL (7.4-11.0); MONOCYTES # (AUTO) 0.5 x10^3/uL (0.3-0.8); MONOCYTES % (AUTO) 12.4 % (0.0-13.0); NEUTROPHILS # (AUTO) 2.8 x10^3/uL (2.2-4.8); NEUTROPHILS % (AUTO) 69.3 % (42.0-75.0); PLATELET COUNT 148 X10^3/uL (150.0-450.0); RED BLOOD COUNT 4.44 X10^6/uL (3.5-5.4); RED CELL DISTRIBUTION WIDTH 14.3 % (11.6-16.5)
[2017-11-17 06:03] LABS: ALANINE AMINOTRANSFERASE 12 Units/L (12-78); ALBUMIN 2.6 g/dL (3.4-5.0); ALKALINE PHOSPHATASE 67 Units/L (46-116); ASPARTATE AMINO TRANSFERASE 10 Units/L (15-37); BLOOD UREA NITROGEN 21 mg/dL (7-18); CALCIUM 9.5 mg/dL (8.5-10.1); CARBON DIOXIDE 31.1 mmol/L (21-32); CHLORIDE 100 mmol/L (98-107); COR CA(FOR HYPOALB) 10.6 mg/dL (8.5-10.1); CREATININE 1.22 mg/dL (0.55-1.02); SODIUM 137 mmol/L (136-145); eGFR NON BLACK RACES 45 (>60)
[2017-11-17] MEDS ORDERED: POTASSIUM CHLORIDE LIQ 20 MEQ UDC PO ONE (06:10)
[2017-11-17] MEDS: ANTIVERT TAB 25 MG PO SCH (08:37)
[2017-11-17] MEDS: COLCRYS TAB 0.6 MG PO SCH (08:37)
[2017-11-17] MEDS: HYZAAR 50/12.5 MG PO SCH (08:37)
--- NOTE | 2017-11-17 08:38 | DR.H&P ---
H&P - History & Physical for Day of: H&P Date: 11/15/17 - Chief Complaint Chief Complaint: weakness - History of Present Illness History of Present Illness: is a 82 year old patient of ours who presented to the emergency room with reports of weakness. Patient reports symptoms started about a month ago with associated nausea, decreased appetite and shortness of breath. Patient states symptoms have become worse in the last three days. On arrival, vitals were 99.8, 56, 20, 93% RA, 173/72. Labs were obtained. Abnormal lab values include the following: Abnormal Labs: Sodium 135, Corrected Sodium 135, BUN 24, Creatinine 1.43, GFR af 45, GFR non 37, Glucose 113, Corrected Calcium 10.6, AST 14, Creatine Kinase 9, 9, Albumin 3.1, A/G Ratio 0.9. Chest X-Ray revealed @1543 revealed: Stable cardiomegaly without overt edema. Retrocardiac opacity, suggestive for atelectasis, infiltrate, and/ or pleural effusion. Consider two-view chest for further evaluation, if indicated. Large hiatal hernia. Chest X-Ray @1657 revealed: There is persistent density at the left lung base obscuring the left heart border, behind the heart. This corresponds to a large hiatal hernia. There is methylmethacrylate in a compressed lower thoracic, T11 compression fracture. EKG revealed: Prolonged [place] Interval, Right bundle branch block. Rate=59. Patient admitted to the hospital as observation for further evaluation and treatment. Will follow up with am labs and continue to monitor patient. - Past Medical History Past Medical History: Anxiety, Arthritis, CHF, Depression, GERD, Gout, Hypertension, Renal Disease Additional Medical History: Hx (L) Kidney cancer, Hx Bowel Obstructions, Hx hiatal hernia, constipation, pancreatic cyst, liver cyst, chronic back pain - Past Surgical History Surgical History: Bowel Resection, Ortho Surgery, Other - Family History Family Medical History: Cancer, Hypertension - Social History Does patient currently use any type of tobacco product: No Have you used tobacco products in the last 12 months: No Type of Tobacco Use: None Does any household member use tobacco: No Alcohol Use: None Drug Use: None - Medications Home Medications: promethazine [From Phenergan] Adverse Reaction (Verified 11/15/17 15:20) CONTINUE taking the following medications alprazolam [Xanax] 1 tab PO BID PRN 11/15/17 [History] clonidine 1 patch TRANSDERMAL WEEKLY 11/15/17 [History] colchicine [Colcrys] 1 tab PO DAILY 11/15/17 [History] hydralazine 1 tab PO TID 11/15/17 [History] losartan-hydrochlorothiazide 1 tab PO DAILY 11/15/17 [History] meclizine 1 tab PO BID 11/15/17 [History] metoprolol succinate 1 tab PO HS 11/15/17 [History] verapamil 1 tab PO .EVENING 11/15/17 [History] zolpidem [Ambien] 1 tab PO HS 11/15/17 [History] - Review of Systems Constitutional: Weakness, Malaise, Other (decreased appetitie ). denies: Fever Eyes: No Symptoms Reported ENT: No Symptoms Reported Respiratory: Shortness of Breath Cardiovascular: No Symptoms Reported Gastrointestinal: Nausea Genitourinary: No Symptoms Reported Musculoskeletal: No Symptoms Reported Skin: No Symptoms Reported Neurological: Weakness - Physical Exam Vital Signs: Temperature 98.5 F Pulse Rate [Left Brachial] 54 Pulse Rate 56 Respiratory Rate 20 Blood Pressure [Right Arm] 186/81 Blood Pressure [Left Arm] 160/72 Blood Pressure 173/72 O2 Sat by Pulse Oximetry 93 Oriented: Normal Eyes: Normal Ear: Normal Nose: Normal Throat: Normal Respiratory: Diminished Throughout Cardiovascular: Normal. negative: S3, S4, Murmur : Normal Auscultation: Bowel Sounds: Normal Palpation: Normal Tenderness: Normal Skin: Normal Musculoskeletal: Normal Psychiatric: Normal Mood Description: Calm Affect: Normal Speech Pattern: Clear - Assessment/Plan (1) Weakness Status: Acute Plan: admit, normal saline at 80ml/hr, continue to monitor (2) Large hiatal hernia Status: Acute - Allergies Allergies/Adverse Reactions: Allergies Allergy/AdvReac Type Severity Reaction Status Date / Time promethazine [From Phenergan] AdvReac Verified 11/15/17 15:20
[2017-11-17 10:15] LABS: CKMB % 8.3 % (<4); CREATINE KINASE 12 Units/L (26-192); CREATINE KINASE MB < 1.0 ng/mL (0-4.0); TROPONIN I < 0.02 ng/mL (0-1.5)
[2017-11-17 13:29] VITALS: BP 153/69
--- NOTE | 2017-11-17 20:24 | PCM.PROG ---
Progress Note - Progress Note for Day of Date: 11/16/17 - Subjective Subjective: WAS ADMITTED FOR GENERALIZED WEAKNESS AND HYPERTENSION. TODAY, SHE IS ALERT AND ORIENTED, LYING IN BED ON MORNING ROUNDS. SHE CONTINUES TO COMPLAIN OF GENERALIZED WEAKNESS. SHE ALSO COMPLAINS OF MILD, DIFFUSE ABDOMINAL PAIN. XRAY DID REPORT A LARGE HIATAL HERNIA. SHE REPORTS HAVING DIFFICULTY AMBULATING ON HER OWN. ON EXAMINATION, HEART IS REGULAR IN RATE AND RHYTHM. BILATERAL LUNGS ARE CLEAR TO AUSCULTATION. ABDOMEN IS ROUND, SOFT, AND NOTED WITH MILD, DIFFUSE TENDERNESS. WEAKNESS NOTED TO BILATERAL LOWER EXTREMITIES. HER VITALS THIS MORNING ARE 98.9-59-20-90%-185/82. LABS WERE OBTAINED. ABNORMAL LAB VALUES INCLUDE THE FOLLOWING: HCT 35.8, PLT COUNT 142, POTASSIUM 3.0, BUN 21, CREATININE 1.22, AST 10, TOTAL PROTEIN 6.0, ALBUMIN 2.6. TODAY, WE WILL ADMINISTER [id number] Q12H X 2 DOSES FOR HER INCREASED BLOOD PRESSURE. OTHERWISE, WE WILL CONTINUE WITH CURRENT PLAN OF CARE. WE PLAN TO FOLLOW UP WITH AM LABS AND CONTINUE TO MONITOR PATIENT. - Past Medical Family Social History Past Med/Fam/Surg Hx: No changes since H&P Allergies: Allergies promethazine [From Phenergan] Adverse Reaction (Verified 11/15/17 15:20) - Review of Systems ROS: No change since H&P - Vital Signs and I&O's Vital Signs: Temperature 98.4 F Pulse Rate [Left Brachial] 60 Pulse Rate 56 Respiratory Rate 20 Blood Pressure [Right Arm] 186/81 Blood Pressure [Left Arm] 153/69 Blood Pressure 173/72 O2 Sat by Pulse Oximetry 91 Intake and Output: Intake & Output 11/15/17 11/16/17 11/17/17 11/18/17 11:59 11:59 11:59 11:59 Intake Total 669 / 669 2332 / 2332 Output Total 1650 / 1650 4700 / 4700 Balance -981 / -981 -2368 / -2368 - Physical Exam Oriented: Normal Eyes: Normal Ear: Normal Nose: Normal Throat: Normal Respiratory: Normal Cardiovascular: Normal. negative: S3, S4, Murmur : Normal Auscultation: Bowel Sounds: Normal Palpation: Normal Tenderness: Normal Skin: Normal Musculoskeletal: Normal Psychiatric: Normal Mood Description: Calm Affect: Normal Speech Pattern: Clear - Laboratory and Diagnostics Result Diagrams: 11/17/17 04:44 11/17/17 08:45 Labs: Laboratory WBC 4.0 X10^3/uL (3.6-10.0) 11/17/17 04:44 RBC 4.44 X10^6/uL (3.5-5.4) 11/17/17 04:44 Hgb 13.0 g/dL (12.0-16.0) 11/17/17 04:44 Hct 37.7 % (36.0-47.0) 11/17/17 04:44 MCV 84.9 fL (80.0-100.0) 11/17/17 04:44 MCH 29.3 pg (27.0-34.0) 11/17/17 04:44 MCHC 34.5 g/dL (33.0-35.0) 11/17/17 04:44 RDW 14.3 % (11.6-16.5) 11/17/17 04:44 Plt Count 148 X10^3/uL (150.0-450.0) L 11/17/17 04:44 MPV 8.3 fL (7.4-11.0) 11/17/17 04:44 Neut % (Auto) 69.3 % (42.0-75.0) 11/17/17 04:44 Lymph % (Auto) 15.9 % (21.0-51.0) L 11/17/17 04:44 [place] % (Auto) 12.4 % (0.0-13.0) 11/17/17 04:44 Eos % (Auto) 1.8 % (0.9-2.9) 11/17/17 04:44 Baso % (Auto) 0.6 % (0.2-1.0) 11/17/17 04:44 Neut # (Auto) 2.8 x10^3/uL (2.2-4.8) 11/17/17 04:44 Lymph # (Auto) 0.6 X10^3/uL (1.3-2.9) L 11/17/17 04:44 [place] # (Auto) 0.5 x10^3/uL (0.3-0.8) 11/17/17 04:44 Eos # (Auto) 0.1 x10^3/uL (0.0-0.2) 11/17/17 04:44 Baso # (Auto) 0.0 X10^3/uL (0.0-0.1) 11/17/17 04:44 Absolute Nucleated RBC 0.0 /100WBC 11/17/17 04:44 INR Target Range - 11/15/17 15:37 INR 0.92 (0.8-1.3) 11/15/17 15:37 Sodium 137 mmol/L (136-145) 11/17/17 04:44 Corrected Sodium TNP 11/17/17 04:44 Potassium 4.6 mmol/L (3.5-5.1) 11/17/17 08:45 Chloride 100 mmol/L (98-107) 11/17/17 04:44 Carbon Dioxide 31.1 mmol/L (21-32) 11/17/17 04:44 BUN 21 mg/dL (7-18) H 11/17/17 04:44 Creatinine 1.22 mg/dL (0.55-1.02) H 11/17/17 04:44 Est GFR (MDRD) Af Amer 54 (>60) L 11/17/17 04:44 Est GFR (MDRD) Non-Af 45 (>60) L 11/17/17 04:44 Glucose 94 mg/dL (65-99) 11/17/17 04:44 Calcium 9.5 mg/dL (8.5-10.1) 11/17/17 04:44 Corrected Calcium 10.6 mg/dL (8.5-10.1) H 11/17/17 04:44 Magnesium 1.7 mg/dL (1.7-2.9) 11/16/17 03:45 Total Bilirubin 0.70 mg/dL (0.2-1.0) 11/17/17 04:44 AST 10 Units/L (15-37) L 11/17/17 04:44 ALT 12 Units/L (12-78) 11/17/17 04:44 Alkaline Phosphatase 67 Units/L (46-116) 11/17/17 04:44 Creatine Kinase 12 Units/L (26-192) L 11/17/17 08:45 CK-MB (CK-2) < 1.0 ng/mL (0-4.0) 11/17/17 08:45 CK/CKMB % Calc 8.3 % (<4) 11/17/17 08:45 Troponin I < 0.02 ng/mL (0-1.5) 11/17/17 08:45 Total Protein 6.0 g/dL (6.4-8.2) L 11/17/17 04:44 Albumin 2.6 g/dL (3.4-5.0) L 11/17/17 04:44 Globulin 3.4 g/dL (2.5-4.5) 11/17/17 04:44 Albumin/Globulin Ratio 0.8 Ratio (1.1-2.1) L 11/17/17 04:44 Specimen Type Clean catch urine 11/15/17 15:54 Urine Color Yellow (YELLOW) 11/15/17 15:54 Urine Appearance Clear (CLEAR) 11/15/17 15:54 Urine pH 7.0 (5.0 - 8.0) 11/15/17 15:54 Ur Specific [place] 1.005 (1.000-1.030) 11/15/17 15:54 Urine Protein Negative (NEGATIVE) 11/15/17 15:54 Urine Glucose (UA) Negative (NEGATIVE) 11/15/17 15:54 Urine Ketones Negative (NEGATIVE) 11/15/17 15:54 Urine Occult Blood Negative (NEGATIVE) 11/15/17 15:54 Urine Nitrite Negative (NEGATIVE) 11/15/17 15:54 Urine Bilirubin Negative (NEGATIVE) 11/15/17 15:54 Urine Urobilinogen Normal (NORMAL) 11/15/17 15:54 Ur Leukocyte Esterase Negative (NEGATIVE) 11/15/17 15:54 - Plan (1) Weakness Status: Acute Plan: admit, normal saline at 80ml/hr, continue to monitor (2) Large hiatal hernia Status: Acute (3) Hypertension Status: Acute Qualifiers: Hypertension type: essential hypertension Qualified Code(s): I10 - Essential (primary) hypertension Plan: CONTINUE HOME MEDS, LASIX 20MG IV Q12H X 2 DOSES, CONTINUE TO MONITOR
[2017-11-21] MEDS ORDERED: CATAPRES-TTS-2 TD SCH (09:00)
--- NOTE | 2017-12-12 02:30 | DR.CARTERD ---
- Discharge Summary for: Discharge Summary for Date of:: 11/17/17 - Admission Date Date of Admission: 11/15/17 - Admission Diagnoses Admission Diagnosis: (1) Shortness of breath (2) Weakness (3) Large hiatal hernia - Discharge Date Discharge Date: 11/17/17 - Discharge Diagnoses Discharge Diagnosis: (1) CHF (2) Shortness of breath (3) Weakness (4) Large hiatal hernia (5) Hypertension - Hospital Course Hospital Course: Day one, Ms. Haro is a 82 year old patient of ours who presented to the emergency room with reports of weakness. Patient reported symptoms started about a month prior with associated nausea, decreased appetite and shortness of breath. Patient stated symptoms had become worse in the last three days. On arrival, vitals were 99.8, 56, 20, 93% RA, 173/72. Labs were obtained. Abnormal lab values included the following: Abnormal Labs: Sodium 135, Corrected Sodium 135, BUN 24, Creatinine 1.43, GFR af 45, GFR non 37, Glucose 113, Corrected Calcium 10.6, AST 14, Creatine Kinase 9, 9, Albumin 3.1, A/G Ratio 0.9. Chest X- Ray revealed @1543 revealed: Stable cardiomegaly without overt edema. Retrocardiac opacity, suggestive for atelectasis, infiltrate, and/or pleural effusion. Consider two-view chest for further evaluation, if indicated. Large hiatal hernia. Chest X-Ray @1657 revealed: There is persistent density at the left lung base obscuring the left heart border, behind the heart. This corresponds to a large hiatal hernia. There is methylmethacrylate in a compressed lower thoracic, T11 compression fracture. EKG revealed: Prolonged [place] Interval, Right bundle branch block. Rate=59. Patient admitted to the hospital for further evaluation and treatment. We continued to monitor patient. Day two, patient was alert and oriented. She continued to complain of generalized weakness. She also reported mild, diffuse abdominal pain. Xray reported a large hiatal hernia. She reported having difficulty ambulating on her own. Weakness was noted to bilateral lower extremities. Abdomen was round, soft, and noted with mild, diffuse tenderness upon palpation. Vitals were: 98.9- 59-20-90%-185/82. We administered Lasix 20mg IV q12 for two doses for increased blood pressure. We continued to monitor. Day three, patient reported she was feeling much better. She reported symptoms of nausea and weakness were improving. She denied shortness of breath. Vitals stable. Labs wnl. We planned for discharge. We will have patient follow up with Dr. Velazquez, Cardiology for heart failure. Instructions for medications and follow up were discussed with patient and family, both voiced understanding. Patient discharged home in stable condition with family. - Discharge Medications Discharge Medications: Home Medication List alprazolam [Xanax] 1 tab PO BID PRN 11/15/17 [History] clonidine 1 patch TRANSDERMAL WEEKLY 11/15/17 [History] colchicine [Colcrys] 1 tab PO DAILY 11/15/17 [History] hydralazine 1 tab PO TID 11/15/17 [History] meclizine 1 tab PO BID 11/15/17 [History] metoprolol succinate 1 tab PO HS 11/15/17 [History] verapamil 1 tab PO .EVENING 11/15/17 [History] zolpidem [Ambien] 1 tab PO HS 11/15/17 [History] furosemide [Lasix] 40 mg PO DAILY #30 tab 11/17/17 [Rx] losartan 100 mg PO DAILY #30 tab 11/17/17 [Rx] potassium chloride 20 meq PO DAILY #30 tab 11/17/17 [Rx] Prescriptions: furosemide [Lasix] Joe Chin losartan Joe Chin potassium chloride Joe Chin - Discharge Disposition Discharge Disposition: Patient is to follow up in our office in one week and with Dr. Velazquez when appointment is available.
== END 2017-11-17 14:40 | disposition home or self-care (01) ==
LOC: ER 15:25 → MED/SURG 15:25
PROVIDERS: ADMIT Internal Medicine; ATTEND Internal Medicine
DX: R94.4 Abnormal results of kidney function studies; R63.0 Anorexia; R53.1 Weakness; R26.89 Other abnormalities of gait and mobility; I10 Essential (primary) hypertension; E87.6 Hypokalemia; K44.9 Diaphragmatic hernia without obstruction or gangrene; R06.02 Shortness of breath; R94.31 Abnormal electrocardiogram [ECG] [EKG]; J90 Pleural effusion, not elsewhere classified
CPT/HCPCS: 36415; 71010; 71020; 71045; 71046; 80053; 81003; 82550; 82553; 83735; 84132; 84484; 85025; 85610; 93005; 94760; 96365; 97110; 97112; 97162; 97166; 97535; 99284; A4222; G0378; J1940; J3480; J7030